=== PATIENT | male | born 1985 | race Caucasian/White ===

== ENCOUNTER 2017-04-07 13:10 | Outpatient (CLI) | payer BC ==
[~2017-04-07] VITALS: Ht 170.2 cm; Wt 138.1 kg
[~2017-04-07 13:10] MED LIST: CIPR-225 PO; OXYC-12 PO
[2017-04-07] MEDS ORDERED: METF500T4 PO (13:22)
[2017-04-07 13:24] VITALS: BP 145/95
== END 2017-04-07 13:54 | disposition home or self-care (01) ==
LOC: PREOP 13:10
PROVIDERS: ATTEND Surgery
DX: Z01.818 Encounter for other preprocedural examination (principal); Z11.2 Encounter for screening for other bacterial diseases; K43.2 Incisional hernia without obstruction or gangrene
CPT/HCPCS: 87081

== ENCOUNTER 2017-04-09 09:39 | Day surgery (SDC) | payer BC ==
[~2017-04-09] VITALS: Ht 170.2 cm; Wt 138.1 kg
[~2017-04-09 09:39] MED LIST changes: +METF500T4 PO
[2017-04-09] MEDS ORDERED: ceFAZolin 2 GM/50 ML NS 50 ML ONE (09:56)
[2017-04-09] MEDS: LACTATED RINGERS 1,000 ML IV PRN ×2 (10:00→12:02)
[2017-04-09 10:14] VITALS: BP 135/88
[2017-04-09] MEDS ORDERED: ceFAZolin 2 GM/NS 50 ML IV ONE (10:30)
[2017-04-09] MEDS ORDERED: CATHETER FLUSH 10 ML SYR IV PRN (10:30)
[2017-04-09] MEDS ORDERED: LIDOCAINE/EPI 1%-1:100,000 (XYLOCAINE) 20ML ONE ×2 (10:57)
--- NOTE | 2017-04-09 11:21 | Progress Note-Pre Operative ---
Pre-Operative Progress Note H&P Reviewed The H&P was reviewed, patient examined and no changes noted. Date H&P Reviewed: April 09, 2017 Time H&P Reviewed: 11:17 Pre-Operative Diagnosis: Incarcerated Incisional/Vental Hernia YAZAN BRANHAM DO April 09, 2017 11:21
[2017-04-09] MEDS ORDERED: ROCURONIUM 50 MG/5 ML (ZEMURON) VIAL IV ONE ×2 (11:22→12:14)
[2017-04-09] MEDS ORDERED: fentaNYL INJECTION 250 MCG/5 ML AMP ONE (11:22)
[2017-04-09] MEDS ORDERED: proPOfol 200 MG/20 ML (DIPRIVAN) VIAL IV ONE (11:22)
[2017-04-09] MEDS ORDERED: MIDAZOLAM 2 MG/2 ML (VERSED) VIAL ONE (11:22)
[2017-04-09] MEDS ORDERED: ONDANSETRON 4 MG/2 ML (SDV) Z0FRAN ONE ×2 (11:57→12:19)
[2017-04-09] MEDS ORDERED: LACTATED RINGERS 2,000 ML IV ONE (11:57)
[2017-04-09] MEDS ORDERED: KETOROLAC 30 MG/ML VIAL ONE ×2 (11:57→12:19)
[2017-04-09] MEDS ORDERED: SEVOFLURANE (ULTANE) 15 ML INHAL SOLN ONE ×6 (11:57→12:57)
[2017-04-09] MEDS ORDERED: MEPERIDINE (DEMEROL) INJ 50 MG/ML ONE (12:18)
[2017-04-09] MEDS ORDERED: HYDROmorphone (DILAUDID) 2 MG/ML VIAL ONE (12:18)
[2017-04-09] MEDS ORDERED: fentaNYL INJECTION 100 MCG/2 ML AMP ONE (12:18)
[2017-04-09] MEDS ORDERED: morphine INJ 10 MG/ML 1ML (SYR OR VIAL) ONE (12:18)
[2017-04-09] MEDS ORDERED: GLYCOPYRROLATE 0.2 MG/ML (ROBINUL) 2 ML VIAL ONE (12:45)
[2017-04-09] MEDS ORDERED: NEOSTIGMINE (BLOXIVERZ ) 1 MG/1ML 10 ML VIAL ONE (12:45)
--- NOTE | 2017-04-09 12:48 | Progress Note-Post Operative ---
Post-Operative Progess Note Surgeon (s)/Pharmacologist (s) Surgeon YAZAN BRANHAM DO Pharmacologist: Elder Pre-Operative Diagnosis Incarcerated Incisional/Vental Hernia Post-Operative Diagnosis same Procedure & Operative Findings Date of Procedure 04/09/17 Procedure Performed/Findings Lap ventral/inc hernia with mesh Anesthesia Type GET Estimated Blood Loss Estimated blood loss (mL): scant Specimens/Packing Specimens Removed hernia content YAZAN BRANHAM DO April 09, 2017 12:48
[2017-04-09] MEDS ORDERED: HYDR-3820 PO (12:50)
--- NOTE | 2017-04-09 12:52 | Discharge Inst-Surgical ---
Discharge Inst-Surgical Depart Medication/Instructions New, Converted or Re-Newed RX: RX Given to Pt/Family Patient Instructions Follow up Appt: Make appointment for 1 week. [phone] Instructions: No lifting greater than 10 pounds. No strenuous activity. May shower in 24 hours, no tub bath or soaking. Use incentive spirometer at home as directed. No Smoking Skin/Wound Care: May remove bandages. You need to leave the white strips over incision on they will fall off on their own. Symptoms to Report: Appetite Changes, Extremity Discoloration, Numbness/Tingling, Swelling Increased , Bleeding Excessive, Eyesight Changes, Pain Increased, Urine Color Change, Constipation(Persistent), Fever over 101 degree F, Pain/Pressure in chest, Urinating Difficulty, Cough Up/Vomit Blood, Heart Beat Irreg/Pounding, Pain/ Pressure in jaw, Vaginal Bleeding Increase, Cramps in feet or legs, Lightheadedness, Pain/Pressure in shoulder, Diarrhea(Persistent), Memory Changes Suddenly, Questions/Concerns, Weight gain consecutive days, Dizziness/ Fainting, Nausea/Vomiting, Shortness of Breath, Weight gain over 2 pounds If questions or concerns contact your physician Or seek help at emergency department. Activity Activity as Tolerated: Yes Activity Instructions: Avoid Pulling & Pushing, Avoid Stress to Incision Driving Instructions: No Driving/Refer to Dr. Medley Discharge Diet: ADA Diet Diet After 24 Hours: Clear Liquid if Nauseous If Any Problems/Questions/Issu: Contact Your Physician, Go to Emergency Room Skin/Wound Care Infection Signs and Symptoms: Increased Redness, Foul Odor of Wound, Increased Drainage, Skin Itchy or Has a Rash, Increased Swelling, Temperature Above 101 F Bathing Instructions: Shower Stitches/Kit/Dermabond Dis: Dermabond Ice Pack: Ice On and Off Site YAZAN BRANHAM DO April 09, 2017 12:52
[2017-04-09] MEDS ORDERED: ONDANSETRON 4 MG/2 ML (SDV) Z0FRAN IVP PRN (13:15)
[2017-04-09] MEDS: fentaNYL INJECTION 100 MCG/2 ML AMP IVP PRN ×2 (13:30→13:35)
[2017-04-09 14:00] VITALS: BP 111/83
[2017-04-09] MEDS ORDERED: HYDROcodone/APAP 10 MG/325 MG (LORTAB) TAB PO ONE (14:15)
[2017-04-09 14:30] VITALS: BP 120/67
[2017-04-09 15:25] VITALS: BP 120/67
--- NOTE | 2017-04-10 04:26 | OPERATIVE REPORT ---
DATE OF SERVICE: 04/09/2017 PREOPERATIVE DIAGNOSES: 1. Incarcerated incisional ventral hernia. 2. Morbid obesity. POSTOPERATIVE DIAGNOSES: 1. Incarcerated incisional ventral hernia. 2. Morbid obesity. PROCEDURE: Laparoscopic ventral incisional herniorrhaphy with mesh placement. SURGEON: Dr. Clifford. SENIOR PENSIONS ADMINISTRATOR: Dr. Friedman. ANESTHESIA: General endotracheal tube. SPECIMENS: Hernia contents. BLOOD LOSS: Scant. FLUIDS: Per anesthesia. POSTOPERATIVE CONDITION: Stable. INDICATION FOR PROCEDURE: The patient is a 31-year-old male who had a previous lap oren and laparoscopic appendectomy and then had a hernia repair and has subsequently developed another hernia. FINDINGS: The patient had an incarcerated ventral incisional hernia. This was well above the umbilicus and could see the previous mesh. PROCEDURE NOTE: After informed consent was obtained, the patient was brought to the operating room, placed on the table in the supine position. He was sterilely prepped and draped in normal fashion. Local lidocaine used to infiltrate the left upper quadrant with local. I made an incision with an #11 blade, carried down through the skin into the subcutaneous tissue and then deepened down to the subcutaneous tissue with Bovie electrocautery down to the fascia. Fascia incised with Bovie electrocautery and then spread the muscle, went to the posterior fascia and then cut this with Bovie electrocautery and then spread through this and through the muscle and then bluntly into the peritoneum. Then placed a 11 mm trocar port under direct vision to create a pneumoperitoneum. Upon entry, I noted adhesions and omentum stuck up into the abdominal wall. Placed 2 more ports in the normal fashion using local lidocaine, 11 blade for stab incision and the Versa step system, all done under direct visualization, 1 in the left lower quadrant, 1 in the right mid abdomen out towards the flank. I was able to then grasp the omentum and start pulling this down, carefully pulling out the hernia out of the fascial defect using a ligature to clamp, coagulate and transect to get these off the abdominal wall. Once we completely freed this incarcerated hernia, we could actually see a previous hernia mesh. It was well below this ventral hernia defect, took pictures of the ventral hernia defect and then elected to us a 6" Bard Echo mesh. Placed this into the abdomen, made a small stab incision in the abdomen and then used a Yosi-Bazan to grasp the catheter on the mesh, pulled this through the abdominal wall, cut it off and then blew up the balloon to hold the mesh in place and then held it tight against the abdominal wall. Then using a secure strap, I started tacking the mesh to the abdominal wall at the 12 o'clock, 9 o'clock, 6 o'clock and 3 o'clock position and in between these at about 1/2 to 1 cm distances, then removed the balloon and then tacked on the inside of the mesh to create extra area to hold this in place so it would not come down. It looked to be in good position. Pictures were taken. Slowly let a little bit of the pneumoperitoneum out and still looked in good position. Then elected to close the left upper quadrant incision with the Omar using 0 Vicryl figure of eight suture. Watched the needle come in, grasped it and then pulled it out and made a figure of eight to close the posterior fascia and then used a #1 Vicryl to close the anterior fascia. Incision was copiously irrigated with normal saline and then closed the left upper quadrant incision with 3 interrupted 4-0 Monocryl subcuticular stitches and closed the 2 small 5 mm incisions with a single interrupted 4-0 Monocryl subcuticular stitch. The area was cleaned and dried and Dermabond placed. The patient was then transferred to recovery room in stable condition. Sponge, instrument and needle count correct at the end of case. Dr. Friedman assisted in this case. He placed ports, was holding tissue so that I could coagulate and helped with placement of the mesh as well as identification of anatomy. Job ID: [id number] DocumentID: [id number] Dictated Date: 04/09/2017 14:48:08 Padder Date: 04/10/2017 04:25:40 Dictated By: DO YRN WILLIAMSON
== END 2017-04-09 15:25 | disposition home or self-care (01) ==
LOC: SDC 09:39
PROVIDERS: ATTEND Surgery
DX: K43.0 Incisional hernia with obstruction, without gangrene (principal); E66.01 Morbid (severe) obesity due to excess calories; Z68.42 Body mass index [BMI] 45.0-49.9, adult; E11.9 Type 2 diabetes mellitus without complications; Z79.84 Long term (current) use of oral hypoglycemic drugs
CPT/HCPCS: 82962

== ENCOUNTER 2017-08-13 05:41 | Outpatient (CLI) | payer BC ==
[~2017-08-13] VITALS: Ht 170.2 cm; Wt 138.1 kg
[~2017-08-13 05:41] MED LIST changes: +HYDR-3820 PO
[2017-08-13] MEDS ORDERED: GLYB5TAB6 PO (13:52)
== END 2017-08-13 14:02 ==
LOC: PREOP 05:41
PROVIDERS: ATTEND Surgery
DX: Z01.818 Encounter for other preprocedural examination; K92.1 Melena

== ENCOUNTER 2017-08-17 12:15 | Day surgery (SDC) | payer BC ==
[~2017-08-17] VITALS: Ht 170.2 cm; Wt 138.1 kg
[2017-08-17 12:25] VITALS: BP 128/72
[2017-08-17] MEDS ORDERED: LACTATED RINGERS 1,000 ML IV ONE (12:26)
[2017-08-17] MEDS ORDERED: PROPOFOL INJECTION 50 ML IV ONE (12:26)
[2017-08-17] MEDS ORDERED: MIDAZOLAM 2 MG/2 ML (VERSED) VIAL ONE (12:26)
[2017-08-17] MEDS ORDERED: LACTATED RINGERS 1,000 ML IV PRN (12:30)
[2017-08-17] MEDS ORDERED: fentaNYL INJECTION 100 MCG/2 ML AMP ONE (12:41)
--- NOTE | 2017-08-17 12:45 | History & Physical-Surgical ---
HPO-Surgical History of Present Illness Chief Complaint: Rectal bleed Diagnosis/Surgical Indication: Rectal bleed, abdominal pain Procedure: COLONOSCOPY Date of Surgery: Aug 17, 2017 Weight (Pounds): 304 Weight (Ounces): 9.0 Height (Feet): 5 Height (Inches): 7.00 Allergies and Home Medications Allergies Coded Allergies: No Known Drug Allergies (Unverified , 08/13/17) Home Medications Glyburide 5 Mg Tablet, 5 MG PO BID, (Reported) Past Tkxscsa-Mlmrww-Udlffd Hx Patient Social History Recent Foreign Travel: No Contact w/other who traveled: No Recent Hopitalizations: No Recent Infectious Disease Expo: No Immunizations Up To Date Date of Influenza Vaccine: Sep 01, 2016 Seasonal Allergies Seasonal Allergies: No Surgeries Appendectomy, Gallbladder Reproductive System Hx Reproductive Disorders: No Sexually Transmitted Disease: No HIV/AIDS: No Genitourinary Kidney Stones HEENT Loss of Vision: Denies Hearing Impairment: Denies Cancer Skin Type of Treatment: Surgical Intervention Blood Transfusions Adverse Reaction to a Blood Tr: No (N/A) Family Medical History Significant Family History: No Pertinent Family Hx Exam Vital Signs Capillary Refill : General Appearance: Alert, Oriented X3, No Acute Distress HEENT: Atraumatic, PERRLA, EOMI Respiratory: Clear to Auscultation, Normal Air Movement Cardiovascular: Regular Rate, No Murmurs Abdominal: Normal Bowel Sounds, Soft, No Hepatosplenomegaly Extremities: No Clubbing, No Cyanosis Neuro: Normal Gait, Normal Speech, Sensation Intact, Cranial Nerves 3-12 NL Psych/Mental Status: Mental Status NL Assessment/Plan Assessment and Plan Rectal Bleed Plan: colonoscopy, risks and complications discussed, including but not limited to pain, bleeding, infection, and possible intestinal perforation. All questions answered to pt's satisfaction, will proceed with colonoscopy. Problems: YAZAN BRANHAM DO Aug 17, 2017 12:45
[2017-08-17] MEDS ORDERED: proPOfol 200 MG/20 ML (DIPRIVAN) VIAL IV ONE (13:18)
--- NOTE | 2017-08-17 13:51 | Progress Note-Post Operative ---
Post-Operative Progess Note Surgeon (s)/Marketing Co Op (s) Surgeon YAZAN BRANHAM DO Marketing Co Op: none Pre-Operative Diagnosis Rectal bleed, abdominal pain Post-Operative Diagnosis Polyp Diverticula Int Hemorrhoids Procedure & Operative Findings Date of Procedure 08/17/17 Procedure Performed/Findings colon with cold bx Anesthesia Type IV sedation by WATER PUMP SERVICER Estimated Blood Loss Estimated blood loss (mL): scant Specimens/Packing Specimens Removed rectal polyp YAZAN BRANHAM DO Aug 17, 2017 13:51
--- NOTE | 2017-08-17 13:53 | Endoscopy Discharge Instruct ---
Endo Procedure/Findings Findings 1.: Polyp 2.: Diverticulosis 3.: Internal Hemorrhoids Discharge Instructions - Activity: You might feel a little sleepy until tomorrow. This is due to the medicine you received to relax you. Until tomorrow, you should: NOT drive a car, operate machinery or power tools. NOT drink any alcoholic beverages. NOT make any important decisions or sign importortant papers. Do not return to work until tomorrow, unless otherwise instructed. Resume previous activities tomorrow. Diet: Start by taking liquids. If you tolerate liquids, advance to solid food. Make appointment for one week, Notify Physician - If you experience excessive bleeding, unusual abdominal pain, fever, or chest pain, contact your doctor immediately. [phone] Follow-Up: - I have received and understand the above instructions and will call my doctor if I have any further questions. Patient Signature Date Nurse Signature Other (Relationship) YAZAN BRANHAM DO Aug 17, 2017 13:53
[2017-08-17 14:10] VITALS: BP 127/76
[2017-08-17 14:25] VITALS: BP 127/71
[2017-08-17 14:30] VITALS: BP 127/71
--- NOTE | 2017-08-19 14:05 | OPERATIVE REPORT ---
DATE OF SERVICE: 08/17/2017 PREOPERATIVE DIAGNOSES: 1. Rectal bleed. 2. Abdominal pain. POSTOPERATIVE DIAGNOSES: 1. Polyp. 2. Diverticula. 3. Internal hemorrhoids. 4. Abdominal pain. PROCEDURE: Colonoscopy with cold biopsy. SURGEON: Dr. Clifford. PET AMBASSADOR: None. ANESTHESIA: IV sedation by INDUSTRIAL WASTE TREATMENT TECHNICIAN. SPECIMEN: Rectal polyp. BLOOD LOSS: Scant. FLUIDS: Per anesthesia. POSTOPERATIVE CONDITION: Stable. INDICATION FOR PROCEDURE: The patient is a 32-year-old male who has been having chronic abdominal pain with some rectal bleeding and needed a workup. FINDINGS: The patient had a rectal polyp. He also had some diverticula noted and some internal hemorrhoids. PROCEDURE NOTE: After informed consent was obtained, the patient was brought to the endoscopy suite and placed in the left lateral decubitus position. He was administered IV sedation and his vitals were monitored the entire time by the INDUSTRIAL WASTE TREATMENT TECHNICIAN. Inserted the scope, pushed all the way actually to 150 cm and then had to try and get the patient to roll on his back and then back onto his side and finally able to get the scope all the way into the cecum. Took a picture of the appendiceal orifice, noted the ileocecal valve and then slowly withdrew the scope insufflating to look circumferentially baer. I saw one small diverticulum on the right side in the ascending colon. Looked at the cecum, up the ascending colon to the hepatic flexure, then down the transverse colon to the splenic flexure and then down the descending colon into the sigmoid and finally into the rectum. In the rectum, saw a polyp. Elected to do a cold biopsy of this and then retroflexed in the rectal vault. Saw some internal hemorrhoids, took a picture and then removed the scope. The patient tolerated the procedure well. He was recovered in the endoscopy suite. Job ID: [id number] DocumentID: [id number] Dictated Date: 08/19/2017 09:36:40 Livestock Agent Date: 08/19/2017 14:04:51 Dictated By: YAZAN CLIFFORD DO
== END 2017-08-17 14:30 | disposition home or self-care (01) ==
LOC: ENDO 12:15
PROVIDERS: ATTEND Surgery
DX: K62.1 Rectal polyp (principal); K57.30 Diverticulosis of large intestine without perforation or abscess without bleeding; K64.8 Other hemorrhoids; E11.9 Type 2 diabetes mellitus without complications; E66.01 Morbid (severe) obesity due to excess calories; Z87.442 Personal history of urinary calculi; Z79.899 Other long term (current) drug therapy; Z68.42 Body mass index [BMI] 45.0-49.9, adult

== ENCOUNTER → 2017-08-17 | Outpatient (CLI) | payer BC ==
[~2017-08-17] MED LIST changes: +GLYB5TAB6 PO
[2017-08-17 13:21] LABS: ALANINE AMINOTRANSFERASE 65 U/L (0-55); ANION GAP 10 MMOL/L (5-14); ASPARTATE AMINO TRANSFERASE 37 U/L (5-34); BILIRUBIN,TOTAL 0.8 MG/DL (0.1-1.0); BLOOD UREA NITROGEN 10 MG/DL (7-18); BUN/CREATININE RATIO 12; CALCIUM 9.6 MG/DL (8.5-10.1); CARBON DIOXIDE 25 MMOL/L (21-32); CHLORIDE 103 MMOL/L (98-107); CHOLESTEROL 178 MG/DL (< 200); CREATININE SERUM 0.84 MG/DL (0.60-1.30); DIRECT LDL 110 MG/DL (1-129); GFR ESTIMATED > 60; GLUCOSE 149 MG/DL (70-105); POTASSIUM 4.3 MMOL/L (3.6-5.0); SODIUM 138 MMOL/L (135-145); TOTAL PROTEIN 7.3 GM/DL (6.4-8.2); TRIGLYCERIDES 222 MG/DL (<150); VLDL CHOLESTEROL 44 MG/DL (5-40)
== END ==
LOC: LAB 12:17
PROVIDERS: ATTEND Internal Medicine
DX: E78.00 Pure hypercholesterolemia, unspecified (principal); E78.1 Pure hyperglyceridemia; E11.65 Type 2 diabetes mellitus with hyperglycemia
CPT/HCPCS: 36415; 80053; 80061; 83036

== ENCOUNTER → 2020-08-31 | Outpatient (CLI) | payer BC ==
[~2020-08-31] MED LIST changes: +ACHYD1T PO; -HYDR-3820 PO; +METF-397 PO; -METF500T4 PO
--- NOTE | 2020-08-31 11:50 | Diagnostic Imaging Report ---
INDICATION: Hepatomegaly. PROCEDURE: Ultrasound abdomen complete. TECHNIQUE: Multiple real-time grayscale images were obtained of the abdomen in various projections. The liver is enlarged at 21 cm. There is increased echogenicity throughout the liver consistent with hepatic steatosis. No discrete liver mass is identified. The portal vein is patent and shows normal direction of flow. Gallbladder is surgically absent. Pancreas is obscured by bowel gas. The common bile duct is obscured by bowel gas. Spleen is enlarged at 15 cm. Aorta and IVC are obscured. Right and left kidneys demonstrate normal cortical thickness and echogenicity. There is no calculi or hydronephrosis. There is no ascites. IMPRESSION: 1. Hepatosplenomegaly and hepatic steatosis. 2. Status post cholecystectomy. Dictated by: Dictated on workstation # [id number]
== END ==
LOC: RAD 09:04
PROVIDERS: ATTEND Internal Medicine
DX: K76.0 Fatty (change of) liver, not elsewhere classified (principal); R16.1 Splenomegaly, not elsewhere classified; Z90.49 Acquired absence of other specified parts of digestive tract
CPT/HCPCS: 76700

== ENCOUNTER 2021-04-19 10:02 | Outpatient (RCR) | payer BC ==
[2021-01-21 09:22] LABS: BASOPHILS # (AUTO) 0.1 10^3/uL (0.0-0.1); BASOPHILS % (AUTO) 1 % (0-10); EOSINOPHILS # (AUTO) 0.2 10^3/uL (0.0-0.3); EOSINOPHILS % (AUTO) 2 % (0-10); HEMATOCRIT 45 % (40-54); HEMOGLOBIN 15.5 g/dL (13.3-17.7); LYMPHOCYTES # (AUTO) 3.4 10^3/uL (1.0-4.0); LYMPHOCYTES % (AUTO) 38 % (12-44); MEAN CORPUSCULAR HEMOGLOBIN 29 pg (25-34); MEAN CORPUSCULAR HGB CONC 35 g/dL (32-36); MEAN CORPUSCULAR VOLUME 84 fL (80-99); MEAN PLATELET VOLUME 10.1 fL (9.0-12.2); MONOCYTES # (AUTO) 0.6 10^3/uL (0.0-1.0); MONOCYTES % (AUTO) 7 % (0-12); NEUTROPHILS # (AUTO) 4.6 10^3/uL (1.8-7.8); NEUTROPHILS % (AUTO) 52 % (42-75); PLATELET COUNT 188 10^3/uL (130-400); WHITE BLOOD COUNT 8.9 10^3/uL (4.3-11.0)
[2021-01-21 09:50] LABS: ALANINE AMINOTRANSFERASE 61 U/L (0-55); ALBUMIN 4.1 GM/DL (3.2-4.5); ALKALINE PHOSPHATASE 71 U/L (40-136); BILIRUBIN,TOTAL 0.5 MG/DL (0.1-1.0); BUN/CREATININE RATIO 19; CALCIUM 8.8 MG/DL (8.5-10.1); CARBON DIOXIDE 18 MMOL/L (21-32); CHLORIDE 105 MMOL/L (98-107); CREATININE SERUM 0.85 MG/DL (0.60-1.30); GFR ESTIMATED > 60; GLUCOSE 242 MG/DL (70-105); POTASSIUM 3.8 MMOL/L (3.6-5.0); SODIUM 136 MMOL/L (135-145); TOTAL PROTEIN 6.9 GM/DL (6.4-8.2)
[2021-03-06 15:56] LABS: BASOPHILS # (AUTO) 0.1 10^3/uL (0.0-0.1); BASOPHILS % (AUTO) 1 % (0-10); EOSINOPHILS # (AUTO) 0.2 10^3/uL (0.0-0.3); EOSINOPHILS % (AUTO) 2 % (0-10); HEMATOCRIT 46 % (40-54); HEMOGLOBIN 16.1 g/dL (13.3-17.7); LYMPHOCYTES # (AUTO) 3.8 X 10^3 (1.0-4.0); LYMPHOCYTES % (AUTO) 30 % (12-44); MEAN CORPUSCULAR HEMOGLOBIN 29 pg (25-34); MEAN CORPUSCULAR HGB CONC 35 g/dL (32-36); MEAN CORPUSCULAR VOLUME 83 fL (80-99); MONOCYTES # (AUTO) 0.7 X 10^3 (0.0-1.0); MONOCYTES % (AUTO) 5 % (0-12); NEUTROPHILS % (AUTO) 62 % (42-75); PLATELET COUNT 238 10^3/uL (130-400); WHITE BLOOD COUNT 12.8 10^3/uL (4.3-11.0)
[2021-03-22 09:53] LABS: BASOPHILS # (AUTO) 0.1 10^3/uL (0.0-0.1); BASOPHILS % (AUTO) 1 % (0-10); EOSINOPHILS # (AUTO) 0.2 10^3/uL (0.0-0.3); EOSINOPHILS % (AUTO) 2 % (0-10); HEMATOCRIT 47 % (40-54); HEMOGLOBIN 16.3 g/dL (13.3-17.7); LYMPHOCYTES # (AUTO) 2.8 10^3/uL (1.0-4.0); LYMPHOCYTES % (AUTO) 34 % (12-44); MEAN CORPUSCULAR HEMOGLOBIN 30 pg (25-34); MEAN CORPUSCULAR HGB CONC 35 g/dL (32-36); MEAN CORPUSCULAR VOLUME 86 fL (80-99); MEAN PLATELET VOLUME 10.1 fL (9.0-12.2); MONOCYTES # (AUTO) 0.6 10^3/uL (0.0-1.0); MONOCYTES % (AUTO) 7 % (0-12); NEUTROPHILS # (AUTO) 4.7 10^3/uL (1.8-7.8); NEUTROPHILS % (AUTO) 56 % (42-75); PLATELET COUNT 225 10^3/uL (130-400); WHITE BLOOD COUNT 8.5 10^3/uL (4.3-11.0)
[2021-03-22 10:37] LABS: ALANINE AMINOTRANSFERASE 56 U/L (0-55); ALBUMIN 4.4 GM/DL (3.2-4.5); ALKALINE PHOSPHATASE 76 U/L (40-136); BILIRUBIN,TOTAL 0.4 MG/DL (0.1-1.0); BUN/CREATININE RATIO 13; CALCIUM 9.2 MG/DL (8.5-10.1); CARBON DIOXIDE 21 MMOL/L (21-32); CHLORIDE 104 MMOL/L (98-107); CREATININE SERUM 0.89 MG/DL (0.60-1.30); GFR ESTIMATED > 60; GLUCOSE 287 MG/DL (70-105); POTASSIUM 4.1 MMOL/L (3.6-5.0); SODIUM 138 MMOL/L (135-145); TOTAL PROTEIN 7.5 GM/DL (6.4-8.2)
[2021-04-08 14:04] LABS: BASOPHILS # (AUTO) 0.1 10^3/uL (0.0-0.1); BASOPHILS % (AUTO) 1 % (0-10); EOSINOPHILS # (AUTO) 0.2 10^3/uL (0.0-0.3); EOSINOPHILS % (AUTO) 2 % (0-10); HEMATOCRIT 44 % (40-54); HEMOGLOBIN 15.7 g/dL (13.3-17.7); LYMPHOCYTES # (AUTO) 3.2 10^3/uL (1.0-4.0); LYMPHOCYTES % (AUTO) 30 % (12-44); MEAN CORPUSCULAR HEMOGLOBIN 30 pg (25-34); MEAN CORPUSCULAR HGB CONC 36 g/dL (32-36); MEAN CORPUSCULAR VOLUME 84 fL (80-99); MEAN PLATELET VOLUME 10.1 fL (9.0-12.2); MONOCYTES # (AUTO) 0.5 10^3/uL (0.0-1.0); MONOCYTES % (AUTO) 5 % (0-12); NEUTROPHILS # (AUTO) 6.6 10^3/uL (1.8-7.8); NEUTROPHILS % (AUTO) 62 % (42-75); PLATELET COUNT 209 10^3/uL (130-400); WHITE BLOOD COUNT 10.6 10^3/uL (4.3-11.0)
[~2021-04-19 10:02] MED LIST changes: +GLBR5T PO; -GLYB5TAB6 PO
[2021-04-19 10:21] LABS: BASOPHILS # (AUTO) 0.1 10^3/uL (0.0-0.1); BASOPHILS % (AUTO) 1 % (0-10); EOSINOPHILS # (AUTO) 0.2 10^3/uL (0.0-0.3); EOSINOPHILS % (AUTO) 3 % (0-10); HEMATOCRIT 47 % (40-54); HEMOGLOBIN 16.3 g/dL (13.3-17.7); LYMPHOCYTES # (AUTO) 2.7 10^3/uL (1.0-4.0); LYMPHOCYTES % (AUTO) 36 % (12-44); MEAN CORPUSCULAR HEMOGLOBIN 30 pg (25-34); MEAN CORPUSCULAR HGB CONC 35 g/dL (32-36); MEAN CORPUSCULAR VOLUME 85 fL (80-99); MEAN PLATELET VOLUME 10.1 fL (9.0-12.2); MONOCYTES # (AUTO) 0.6 10^3/uL (0.0-1.0); MONOCYTES % (AUTO) 7 % (0-12); NEUTROPHILS % (AUTO) 53 % (42-75); PLATELET COUNT 213 10^3/uL (130-400); WHITE BLOOD COUNT 7.6 10^3/uL (4.3-11.0)
== END 2021-04-21 | disposition home or self-care (01) ==
LOC: ONC 10:02
PROVIDERS: ATTEND Internal Medicine Hematology & Oncology
DX: E83.110 Hereditary hemochromatosis (principal); R94.5 Abnormal results of liver function studies; E11.9 Type 2 diabetes mellitus without complications
CPT/HCPCS: 80053; 82728; 83540; 85025; G0463; 36415; 82274; 99195; 99213; 99214

== ENCOUNTER 2021-07-01 15:44 | Outpatient (RCR) | payer BC ==
[2021-05-10 13:54] LABS: BASOPHILS # (AUTO) 0.1 10^3/uL (0.0-0.1); BASOPHILS % (AUTO) 1 % (0-10); EOSINOPHILS # (AUTO) 0.1 10^3/uL (0.0-0.3); EOSINOPHILS % (AUTO) 1 % (0-10); HEMATOCRIT 45 % (40-54); HEMOGLOBIN 15.5 g/dL (13.3-17.7); LYMPHOCYTES # (AUTO) 2.5 X 10^3 (1.0-4.0); LYMPHOCYTES % (AUTO) 28 % (12-44); MEAN CORPUSCULAR HEMOGLOBIN 29 pg (25-34); MEAN CORPUSCULAR HGB CONC 35 g/dL (32-36); MEAN CORPUSCULAR VOLUME 84 fL (80-99); MONOCYTES # (AUTO) 0.5 X 10^3 (0.0-1.0); MONOCYTES % (AUTO) 6 % (0-12); NEUTROPHILS # (AUTO) 5.8 X 10^3 (1.8-7.8); NEUTROPHILS % (AUTO) 65 % (42-75); PLATELET COUNT 214 10^3/uL (130-400)
[2021-05-10 14:16] LABS: ALANINE AMINOTRANSFERASE 50 U/L (0-55); ALKALINE PHOSPHATASE 76 U/L (40-136); BILIRUBIN,TOTAL 0.3 MG/DL (0.1-1.0); BUN/CREATININE RATIO 9; CALCIUM 9.3 MG/DL (8.5-10.1); CARBON DIOXIDE 20 MMOL/L (21-32); CHLORIDE 104 MMOL/L (98-107); CREATININE SERUM 1.27 MG/DL (0.60-1.30); GFR ESTIMATED > 60; POTASSIUM 4.3 MMOL/L (3.6-5.0); SODIUM 135 MMOL/L (135-145); TOTAL PROTEIN 7.1 GM/DL (6.4-8.2)
[2021-05-10 14:24] LABS: GLUCOSE 518 MG/DL (70-105)
[2021-06-11 15:16] LABS: BASOPHILS # (AUTO) 0.1 10^3/uL (0.0-0.1); BASOPHILS % (AUTO) 1 % (0-10); EOSINOPHILS # (AUTO) 0.1 10^3/uL (0.0-0.3); EOSINOPHILS % (AUTO) 1 % (0-10); HEMATOCRIT 46 % (40-54); LYMPHOCYTES # (AUTO) 2.9 10^3/uL (1.0-4.0); LYMPHOCYTES % (AUTO) 28 % (12-44); MEAN CORPUSCULAR HEMOGLOBIN 29 pg (25-34); MEAN CORPUSCULAR HGB CONC 35 g/dL (32-36); MEAN CORPUSCULAR VOLUME 83 fL (80-99); MEAN PLATELET VOLUME 10.3 fL (9.0-12.2); MONOCYTES # (AUTO) 0.5 10^3/uL (0.0-1.0); MONOCYTES % (AUTO) 5 % (0-12); NEUTROPHILS # (AUTO) 6.5 10^3/uL (1.8-7.8); NEUTROPHILS % (AUTO) 64 % (42-75); PLATELET COUNT 213 10^3/uL (130-400); WHITE BLOOD COUNT 10.1 10^3/uL (4.3-11.0)
[2021-07-01 16:19] LABS: BASOPHILS % (AUTO) 0 % (0-10); EOSINOPHILS # (AUTO) 0.1 10^3/uL (0.0-0.3); EOSINOPHILS % (AUTO) 1 % (0-10); HEMATOCRIT 44 % (40-54); HEMOGLOBIN 15.7 g/dL (13.3-17.7); LYMPHOCYTES # (AUTO) 3.3 X 10^3 (1.0-4.0); LYMPHOCYTES % (AUTO) 32 % (12-44); MEAN CORPUSCULAR HEMOGLOBIN 29 pg (25-34); MEAN CORPUSCULAR HGB CONC 35 g/dL (32-36); MEAN CORPUSCULAR VOLUME 82 fL (80-99); MEAN PLATELET VOLUME 10.3 fL (9.0-12.2); MONOCYTES # (AUTO) 0.6 X 10^3 (0.0-1.0); MONOCYTES % (AUTO) 6 % (0-12); NEUTROPHILS # (AUTO) 6.2 X 10^3 (1.8-7.8); NEUTROPHILS % (AUTO) 60 % (42-75); PLATELET COUNT 221 10^3/uL (130-400); WHITE BLOOD COUNT 10.3 10^3/uL (4.3-11.0)
== END 2021-08-08 | disposition home or self-care (01) ==
LOC: ONC 15:44
PROVIDERS: ATTEND Internal Medicine Hematology & Oncology
DX: Z45.2 Encounter for adjustment and management of vascular access device (principal); E83.110 Hereditary hemochromatosis; K75.81 Nonalcoholic steatohepatitis (NASH); E11.9 Type 2 diabetes mellitus without complications; R94.5 Abnormal results of liver function studies
CPT/HCPCS: 36415; 80053; 82728; 85025; 99195; 99213

== ENCOUNTER 2021-09-03 15:12 | Outpatient (RCR) | payer BC ==
[2021-09-03 15:21] LABS: BASOPHILS % (AUTO) 0 % (0-10); EOSINOPHILS # (AUTO) 0.1 10^3/uL (0.0-0.3); EOSINOPHILS % (AUTO) 1 % (0-10); HEMATOCRIT 47 % (40-54); HEMOGLOBIN 16.4 g/dL (13.3-17.7); LYMPHOCYTES # (AUTO) 3.3 X 10^3 (1.0-4.0); LYMPHOCYTES % (AUTO) 32 % (12-44); MEAN CORPUSCULAR HEMOGLOBIN 29 pg (25-34); MEAN CORPUSCULAR HGB CONC 35 g/dL (32-36); MEAN CORPUSCULAR VOLUME 82 fL (80-99); MEAN PLATELET VOLUME 10.2 fL (9.0-12.2); MONOCYTES # (AUTO) 0.5 X 10^3 (0.0-1.0); MONOCYTES % (AUTO) 5 % (0-12); NEUTROPHILS # (AUTO) 6.2 X 10^3 (1.8-7.8); NEUTROPHILS % (AUTO) 60 % (42-75); PLATELET COUNT 216 10^3/uL (130-400); WHITE BLOOD COUNT 10.3 10^3/uL (4.3-11.0)
[2021-09-03 15:40] LABS: ALBUMIN 4.3 GM/DL (3.2-4.5); BILIRUBIN,TOTAL 0.4 MG/DL (0.1-1.0); CALCIUM 10.4 MG/DL (8.5-10.1); CREATININE SERUM 1.06 MG/DL (0.60-1.30); POTASSIUM 4.1 MMOL/L (3.6-5.0); TOTAL PROTEIN 7.5 GM/DL (6.4-8.2)
== END 2021-11-22 | disposition home or self-care (01) ==
LOC: ONC 15:12
PROVIDERS: ATTEND Internal Medicine Hematology & Oncology
DX: Z45.2 Encounter for adjustment and management of vascular access device (principal); E83.110 Hereditary hemochromatosis; K75.81 Nonalcoholic steatohepatitis (NASH); E11.9 Type 2 diabetes mellitus without complications; R94.5 Abnormal results of liver function studies
CPT/HCPCS: 80053; 82728; 85025; 99195; G0463